=== PATIENT | male | born 2000 | race Caucasian/White ===

== ENCOUNTER 2020-07-22 21:44 | Emergency (ER) | payer SELFPAY ==
[2020-07-22] MEDS ORDERED: ACETAMINOPHEN 325 MG TABLET ONE (22:50)
[2020-07-22] MEDS ORDERED: ONDANSETRON 4 MG (ODT) TAB ONE (22:50)
--- NOTE | 2020-07-22 23:28 | EDPHYS ---
Physician Documentation [facility] Name: Vincent Navarro Age: 19 yrs Sex: Male : 2000 Arrival Date: 07/22/2020 Time: 21:47 Bed 5 Private MD: ED Physician José Manuel Borjas HPI: 07/22 21:55 This 19 yrs old Male presents to ER via Unassigned with complaints of Fall Injury, cp Concussion*. 21:55 Details of fall: The patient fell from a height, down approximately 4 stairs, and cp struck a concrete surface. 21:55 Onset: The symptoms/episode began/occurred just prior to arrival. Associated injuries: cp The patient sustained no obvious injury. Patient reports LOC of unknown duration. Denies any current pain. Slipped on wet stairs at apartment complex. Historical: - Allergies: 21:55 No Known Allergies; jd3 - Home Meds: 21:55 None [Active]; jd3 - PMHx: 21:55 None; jd3 - PSHx: 21:55 None; jd3 - Immunization history:: Adult Immunizations up to date. - Social history:: Smoking status: Patient reports the use of cigarette tobacco products, denies chronic smoking, but will smoke occasionally, Reported history of juuling and/or vaping. - Immunization history: Last tetanus immunization: unknown. ROS: 22:00 Neuro: Positive for loss of consciousness, Negative for altered mental status. cp 22:00 Constitutional: Negative for body aches, chills, fever, poor PO intake. cp 22:00 Neck: Negative for pain with movement, pain at rest, stiffness. 22:00 Cardiovascular: Negative for chest pain, palpitations. 22:00 Respiratory: Negative for cough, shortness of breath, wheezing. 22:00 Abdomen/GI: Positive for vomiting, Negative for abdominal pain. 22:00 Back: Negative for pain at rest, pain with movement. 22:00 All other systems are negative. Exam: 22:07 Head/Face: Normocephalic, atraumatic. cp 22:07 Constitutional: The patient appears in no acute distress, alert, awake, non-diaphoretic, non-toxic, well developed, well nourished. 22:07 Eyes: Periorbital structures: appear normal, Pupils: equal, round, and reactive to light and accomodation, Extraocular movements: intact throughout, Sclera: no appreciated abnormality, Lids and lashes: appear normal, bilaterally. 22:07 ENT: External ear(s): are unremarkable, Ear canal(s): are normal, clear, TM's: dullness, bilaterally, Nose: is normal, Mouth: Lips: moist, Oral mucosa: moist, Posterior pharynx: Airway: no evidence of obstruction, patent. 22:07 Neck: C-spine: C-collar placed in ED, vertebral tenderness, is not appreciated, crepitus, is not appreciated. 22:07 Chest/axilla: Inspection: normal, Palpation: is normal, no crepitus, no tenderness. 22:07 Cardiovascular: Rate: tachycardic, Rhythm: regular. 22:07 Respiratory: the patient does not display signs of respiratory distress, Respirations: cp normal, no use of accessory muscles, no retractions, labored breathing, is not present. 22:07 Abdomen/GI: Inspection: abdomen appears normal, Palpation: abdomen is soft and non-tender, in all quadrants. 22:07 Back: pain, is absent, ROM is normal. 22:07 Musculoskeletal/extremity: Exam is negative for decreased range of motion, deformity, injury. 22:07 Neuro: Orientation: to person, place \T\ time. Mentation: is normal, Motor: moves all fours, strength is normal, Sensation: is normal, Gait: is steady. Vital Signs: 21:55 BP 131 / 76; Pulse 106; Resp 17 S; Temp 98.1(O); Pulse Ox 98% on R/A; Weight 72.57 kg jd3 (R); Height 5 ft. 11 in. (180.34 cm) (R); Pain 2/10; 23:08 BP 103 / 86; Pulse 88; Resp 18; Pulse Ox 99% ; ea 21:55 Body Mass Index 22.32 (72.57 kg, 180.34 cm) jd3 Peggy Coma Score: 21:56 Eye Response: spontaneous(4). Verbal Response: oriented(5). Motor Response: obeys ea commands(6). Total: 15. 23:34 Eye Response: spontaneous(4). Verbal Response: oriented(5). Motor Response: obeys mg2 commands(6). Total: 15. Trauma Score (Adult): 21:56 Eye Response: spontaneous(1); Verbal Response: oriented(1); Motor Response: obeys ea commands(2); Systolic BP: > 89 mm Hg(4); Respiratory Rate: 10 to 29 per min(4); [place] Score: 15; Trauma Score: 12 23:34 Eye Response: spontaneous(1); Verbal Response: oriented(1); Motor Response: obeys mg2 commands(2); Systolic BP: > 89 mm Hg(4); Respiratory Rate: 10 to 29 per min(4); Peggy Score: 15; Trauma Score: 12 MDM: 21:56 Patient medically screened. cp 22:00 Differential diagnosis: closed head injury, contusion, fracture, laceration, multiple cp trauma. 23:26 Data reviewed: vital signs, nurses notes, radiologic studies, CT scan. cp 23:26 Counseling: I had a detailed discussion with the patient and/or guardian regarding: the cp historical points, exam findings, and any diagnostic results supporting the discharge/admit diagnosis, radiology results, to return to the emergency department if symptoms worsen or persist or if there are any questions or concerns that arise at home. Response to treatment: the patient's symptoms have markedly improved after treatment, and as a result, I will discharge patient. Special discussion: Based on the patient's history, exam and DX evaluation, there is no indication for emergent intervention or inpatient TX. It is understood by the patient/guardian that if the SXs persist or worsen they need to return immediately for re-evaluation. 07/22 21:54 Order name: CT Head C Spine cp Administered Medications: 22:39 Drug: Zofran (Ondansetron) 4 mg Route: PO; ea 23:31 Follow up: Response: No adverse reaction mg2 22:56 Drug: Tylenol 650 mg Route: PO; ea 23:31 Follow up: Response: No adverse reaction mg2 Disposition: 23:40 Chart complete. 07/23 00:47 Co-signature as Attending Physician, José Manuel Borjas MD. mh7 Disposition: 07/22/20 23:27 Discharged to Home. Impression: Concussion with loss of consciousness of unspecified duration. - Condition is Stable. - Discharge Instructions: Concussion, Adult, Head Injury, Adult. - Medication Reconciliation Form, Thank You Letter, Antibiotic Education, Prescription Opioid Use, Work release form form. - Follow up: Carlos Manuel Chapman MD; When: 2 - 3 days; Reason: Worsening of condition. - Problem is new. - Symptoms have improved. Signatures: Dispatcher [employer] EDMS Jesus Dickson PA PA cp Shari Christian RN RN Jarad Orosco RN RN jd3 Wilver Lord RN RN mg2 José Manuel Borjas MD MD mh7 Corrections: (The following items were deleted from the chart) 07/22 23:35 23:27 07/22/2020 23:27 Discharged to Home. Impression: Concussion with loss of mg2 consciousness of unspecified duration. Condition is Stable. Forms are Medication Reconciliation Form, Thank You Letter, Antibiotic Education, Prescription Opioid Use. Follow up: Carlos Manuel Chapman; When: 2 - 3 days; Reason: Worsening of condition. Problem is new. Symptoms have improved. cp 07/23 13:35 07/22 22:07 Cardiovascular: Rate: tachycardic, Rhythm: regular, cp cp
--- NOTE | 2020-07-22 23:28 | ER ---
Nurse's Notes [facility] Name: Vincetn Navarro Age: 19 yrs Sex: Male : 2000 Arrival Date: 07/22/2020 Time: 21:47 Bed 5 Private MD: Diagnosis: Concussion with loss of consciousness of unspecified duration Presentation: 07/22 21:54 Chief complaint: Patient states: "I fell down about 4 steps and hit my head. I passed jd3 out and when I woke up my girlfriend said I was throwing up a lot.". Coronavirus screen: At this time, the client does not indicate any symptoms associated with coronavirus-19. Ebola Screen: Patient negative for fever greater than or equal to 101.5 degrees Fahrenheit, and additional compatible Ebola Virus Disease symptoms. Initial Sepsis Screen: Does the patient meet any 2 criteria? No. Patient's initial sepsis screen is negative. Does the patient have a suspected source of infection? No. Patient's initial sepsis screen is negative. Risk Assessment: Do you want to hurt yourself or someone else? Patient reports no desire to harm self or others. Onset of symptoms was July 22, 2020. 21:54 Method Of Arrival: Ambulatory jd3 21:54 Acuity: REJI 3 jd3 21:57 Care prior to arrival: None. Mechanism of Injury: Fall down 4 steps. Trauma event ea details: Injury occurred in the [facility], Injury occurred: at home. Injury occurred: July 22, 2020. Trauma Activation: Not Applicable Physician: ED Physician; Name: ; Notified At: ; Arrived At: Physician: General Surgeon; Name: ; Notified At: ; Arrived At: Physician: Radiology; Name: ; Notified At: ; Arrived At: Physician: Respiratory; Name: ; Notified At: ; Arrived At: Physician: Lab; Name: ; Notified At: ; Arrived At: Historical: - Allergies: 21:55 No Known Allergies; jd3 - Home Meds: 21:55 None [Active]; jd3 - PMHx: 21:55 None; jd3 - PSHx: 21:55 None; jd3 - Immunization history:: Adult Immunizations up to date. - Social history:: Smoking status: Patient reports the use of cigarette tobacco products, denies chronic smoking, but will smoke occasionally, Reported history of juuling and/or vaping. - Immunization history: Last tetanus immunization: unknown. Screenin:56 Abuse screen: Denies threats or abuse. Nutritional screening: No deficits noted. ea Tuberculosis screening: No symptoms or risk factors identified. Fall Risk None identified. Primary Survey: 21:55 NO uncontrolled hemorrhage observed. A: The patient is alert. Airway: patent. ea Breathing/Chest: Respiratory pattern: regular, Respiratory effort: spontaneous, unlabored. Circulation: Skin color: pink, Skin temperature: warm. Disability Alert. Exposure/Environment: A warming method has been applied: A warm blanket has been provided to the patient. 23:04 Reassessment Breathing/Chest Respiratory pattern Regular Respiratory effort Spontaneous ea Unlabored. Assessment: 21:57 General: Appears in no apparent distress. Behavior is appropriate for age. Pain: Denies ea pain. Neuro: Level of Consciousness is awake, alert, obeys commands, Oriented to person, place, time, situation. Cardiovascular: Patient's skin is warm and dry. Respiratory: Airway is patent Respiratory effort is even, unlabored, Respiratory pattern is regular, symmetrical. Derm: Skin is pink, warm \\T\\ dry. Musculoskeletal: Circulation, motion, and sensation intact. 22:20 Reassessment: patient sent to ct scan via wheelchair. mg2 22:39 Reassessment: Patient and/or family updated on plan of care and expected duration. Pain ea level reassessed. Patient is alert, oriented x 3, equal unlabored respirations, skin warm/dry/pink. 23:04 Reassessment: Patient and/or family updated on plan of care and expected duration. Pain ea level reassessed. Patient is alert, oriented x 3, equal unlabored respirations, skin warm/dry/pink. Vital Signs: 21:55 BP 131 / 76; Pulse 106; Resp 17 S; Temp 98.1(O); Pulse Ox 98% on R/A; Weight 72.57 kg jd3 (R); Height 5 ft. 11 in. (180.34 cm) (R); Pain 2/10; 23:08 BP 103 / 86; Pulse 88; Resp 18; Pulse Ox 99% ; ea 21:55 Body Mass Index 22.32 (72.57 kg, 180.34 cm) jd3 Delta Coma Score: 21:56 Eye Response: spontaneous(4). Verbal Response: oriented(5). Motor Response: obeys ea commands(6). Total: 15. 23:34 Eye Response: spontaneous(4). Verbal Response: oriented(5). Motor Response: obeys mg2 commands(6). Total: 15. Trauma Score (Adult): 21:56 Eye Response: spontaneous(1); Verbal Response: oriented(1); Motor Response: obeys ea commands(2); Systolic BP: > 89 mm Hg(4); Respiratory Rate: 10 to 29 per min(4); Delta Score: 15; Trauma Score: 12 23:34 Eye Response: spontaneous(1); Verbal Response: oriented(1); Motor Response: obeys mg2 commands(2); Systolic BP: > 89 mm Hg(4); Respiratory Rate: 10 to 29 per min(4); Peggy Score: 15; Trauma Score: 12 ED Course: 21:47 Patient arrived in ED. bp1 21:50 Jesus Dickson PA is PHCP. cp 21:50 José Manuel Borjas MD is Attending Physician. cp 21:54 Shari Christian, [place] is Primary Nurse. ea 21:55 Triage completed. jd3 21:56 Arm band placed on. jd3 21:56 Patient has correct armband on for positive identification. Bed in low position. Call ea light in reach. Pulse ox on. NIBP on. 21:56 Patient maintains SpO2 saturation greater than 95% on room air. Thermoregulation: warm ea blanket given to patient. 22:00 Rigid cervical collar applied. mg2 22:20 No provider procedures requiring assistance completed. Patient did not have IV access mg2 during this emergency room visit. 22:42 CT Head C Spine In Process Unspecified. EDMS 23:27 Carlos Manuel Chapman MD is Referral Physician. cp Administered Medications: 22:39 Drug: Zofran (Ondansetron) 4 mg Route: PO; ea 23:31 Follow up: Response: No adverse reaction mg2 22:56 Drug: Tylenol 650 mg Route: PO; ea 23:31 Follow up: Response: No adverse reaction mg2 Intake: 23:34 PO: 0ml; Total: 0ml. mg2 Outcome: 23:27 Discharge ordered by MD. cp 23:34 Discharged to home ambulatory, with family. mg2 23:34 Condition: stable 23:34 Discharge instructions given to patient, family, Instructed on discharge instructions, follow up and referral plans. medication usage, Demonstrated understanding of instructions, follow-up care. 23:35 Patient's length of stay was not longer than 2 hours. mg2 23:35 Patient left the ED. mg2 Signatures: Dispatcher [employer] EDMS Jesus Dickson PA PA cp Antunez, Elena, RN RN ea Davies, Jonathon, RN RN jd3 Gardose, Michele, RN RN mg2 Lupe Potter
[2020-07-23 04:34] VITALS: TEMP 98.1
[2020-07-23 04:36] VITALS: BP 103/86; O2SAT 99
--- NOTE | 2020-07-23 17:51 | RAD REPORT ---
EXAM DESCRIPTION: CT - [id number] - 07/23/2020 1:14 am CLINICAL HISTORY: Fall down stairs with LOC COMPARISON: None. TECHNIQUE: CT Head and Cervical spine WO contrast on 07/22/2020 9:54 PM [employer] This exam was performed according to our departmental dose-optimization program, which includes autom ated exposure control, adjustment of the mA and/or kV according to patient size and/or use of iterati ve reconstruction technique. FINDINGS: Brain: There is no acute hemorrhage, mass effect or midline shift. Davidson-white differentiat ion is preserved. There is no hydrocephalus. There is no significant volume loss for age. The calvarium is intact. Orbits and globes are unremarkable. The paranasal sinuses are clear. Mastoid air cells are clear. Cervical Spine: There is no acute fracture. Alignment is anatomic. Disc spaces are maintained. Vertebral body heights are preserved. Soft tissues are unremarkable. IMPRESSION: No acute postraumatic findings. Electronically signed by: Leon Cardenas MD 07/22/2020 11:03 PM [employer] Due to temporary technical issues with the PACS/Fluency reporting system, reports are being signed by the in house radiologists without review as a courtesy to insure prompt reporting. The interpreting radiologist is fully responsible for the content of the report.
== END 2020-07-22 23:35 | disposition home or self-care (01) ==
LOC: ER 21:44
DX: S06.0X1A Concussion with loss of consciousness of 30 minutes or less, initial encounter (principal); W10.9XXA Fall (on) (from) unspecified stairs and steps, initial encounter; Y93.9 Activity, unspecified; Y92.9 Unspecified place or not applicable; F17.210 Nicotine dependence, cigarettes, uncomplicated
CPT/HCPCS: 70450; 72125; 99284

== ENCOUNTER 2020-11-14 15:08 | Emergency (ER) | payer SELFPAY ==
--- NOTE | 2020-11-14 16:18 | EDPHYS ---
Physician Documentation [facility] Name: Vincent Navarro Age: 20 yrs Sex: Male : 2000 Arrival Date: 11/14/2020 Time: 15:12 Bed Waiting Private MD: ED Physician Jesus Mejia HPI: 11/14 16:48 This 20 yrs old Male presents to ER via Ambulatory with complaints of Spider jr8 Bite. 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 Had small erythematic region to jr8 lower right medial leg that was hurting. Concerned that he had spider bite and wanted us to evaluate it . Severity of symptoms: At their worst the symptoms were mild. The patient has not experienced similar symptoms in the past. The patient has not recently seen a physician. Historical: - Allergies: 15:20 No Known Allergies; ll1 - PMHx: 15:20 None; ll1 - PSHx: 15:20 None; ll1 - Immunization history:: Last tetanus immunization: up to date Flu vaccine is up to date. - Social history:: Smoking status: Patient reports the use of cigarette tobacco products, smokes one-half pack cigarettes per day. ROS: 16:48 Constitutional: Negative for fever, chills, and weight loss, MS/Extremity: Negative for jr8 injury and deformity. 16:48 Skin: Positive for erythema, of the right leg. 16:48 All other systems are negative. Exam: 16:48 Constitutional: This is a well developed, well nourished patient who is awake, alert, jr8 and in no acute distress. Cardiovascular: Regular rate and rhythm with a normal S1 and S2. No gallops, murmurs, or rubs. Normal PMI, no JVD. No pulse deficits. Respiratory: Lungs have equal breath sounds bilaterally, clear to auscultation and percussion. No rales, rhonchi or wheezes noted. No increased work of breathing, no retractions or nasal flaring. MS/ Extremity: Pulses equal, no cyanosis. Neurovascular intact. Full, normal range of motion. Neuro: Awake and alert, GCS 15, oriented to person, place, time, and situation. Cranial nerves II-XII grossly intact. Motor strength 5/5 in all extremities. Sensory grossly intact. Cerebellar exam normal. Normal gait. 16:48 Skin: Patient has small 3 cm red well circumscribed region with small pustulous center. No surrounding induration or cellulitis noted . Vital Signs: 15:21 BP 150 / 83; Pulse 70; Resp 16; Temp 98.2; Pulse Ox 100% ; Weight 74.84 kg; Height 5 ll1 ft. 10 in. (177.80 cm); Pain 1/10; 15:21 Body Mass Index 23.67 (74.84 kg, 177.80 cm) ll1 MDM: 16:17 Patient medically screened. jr8 16:48 Data reviewed: vital signs, nurses notes, and as a result, I will discharge patient. jr8 Data interpreted: Pulse oximetry: on room air is 100 %. Interpretation: normal. Counseling: I had a detailed discussion with the patient and/or guardian regarding: the historical points, exam findings, and any diagnostic results supporting the discharge/admit diagnosis, the need for outpatient follow up, a family practitioner, to return to the emergency department if symptoms worsen or persist or if there are any questions or concerns that arise at home. Administered Medications: No medications were administered Disposition: 19:58 Co-signature as Attending Physician, Jesus Mejia MD I agree with the assessment and [facility] plan of care. Disposition: 11/14/20 16:18 Discharged to Home. Impression: Local infection of the skin and subcutaneous tissue, unspecified. - Condition is Stable. - Discharge Instructions: Skin Abscess, Cellulitis, Adult. - Prescriptions for Bactroban 2 % Topical Ointment - Apply to affected area 1 application by TOPICAL route every 12 hours; 30 gram. Bactrim DS 800- 160 mg Oral Tablet - take 1 tablet by ORAL route every 12 hours for 10 days; 20 tablet. - Work release form, Medication Reconciliation Form, Thank You Letter, Antibiotic Education, Prescription Opioid Use form. - Follow up: Private Physician; When: 1 week; Reason: Recheck today's complaints, Continuance of care, Re-evaluation by your physician. - Problem is new. - Symptoms have improved. Signatures: Jesus Mejia MD MD cha Roszak, Josh, PA PA jr8 Helen Gaspar RN RN ll1 Corrections: (The following items were deleted from the chart) 16:27 16:18 11/14/2020 16:18 Discharged to Home. Impression: Local infection of the skin and ll1 subcutaneous tissue, unspecified. Condition is Stable. Forms are Medication Reconciliation Form, Thank You Letter, Antibiotic Education, Prescription Opioid Use. Follow up: Private Physician; When: 1 week; Reason: Recheck today's complaints, Continuance of care, Re-evaluation by your physician. Problem is new. Symptoms have improved. jr8
--- NOTE | 2020-11-14 16:18 | ER ---
Nurse's Notes [facility] Name: Vincent Navarro Age: 20 yrs Sex: Male : 2000 Arrival Date: 11/14/2020 Time: 15:12 Bed Waiting Private MD: Diagnosis: Local infection of the skin and subcutaneous tissue, unspecified Presentation: 11/14 15:21 Chief complaint: Patient states: Small abscess to R inner leg for 1 day. No drainage or ll1 fever. Coronavirus screen: Client denies travel out of the [place] in the last 14 days. At this time, the client does not indicate any symptoms associated with coronavirus-19. Ebola Screen: Patient denies travel to an Ebola-affected area in the 21 days before illness onset. Initial Sepsis Screen: Does the patient meet any 2 criteria? No. Patient's initial sepsis screen is negative. Does the patient have a suspected source of infection? Yes: Skin breakdown/wound. Risk Assessment: Do you want to hurt yourself or someone else? Patient reports no desire to harm self or others. Onset of symptoms was November 14, 2020. 15:21 Method Of Arrival: Ambulatory ll1 15:21 Acuity: REJI 4 ll1 Triage Assessment: 16:15 General: Appears in no apparent distress. Behavior is calm, cooperative, appropriate ll1 for age. Pain: Complains of pain in RLE Quality of pain is described as aching. Derm: small abscess to right inner lower leg for 1 day. No drainage or fever. Abscess located on RLE is dime sized, has no drainage, Reports pain. Historical: - Allergies: 15:20 No Known Allergies; ll1 - PMHx: 15:20 None; ll1 - PSHx: 15:20 None; ll1 - Immunization history:: Last tetanus immunization: up to date Flu vaccine is up to date. - Social history:: Smoking status: Patient reports the use of cigarette tobacco products, smokes one-half pack cigarettes per day. Screenin:27 Abuse screen: Denies threats or abuse. Nutritional screening: No deficits noted. ll1 Tuberculosis screening: No symptoms or risk factors identified. Fall Risk Total Davila Fall Scale indicates No Risk (0-24 pts). Vital Signs: 15:21 BP 150 / 83; Pulse 70; Resp 16; Temp 98.2; Pulse Ox 100% ; Weight 74.84 kg; Height 5 ll1 ft. 10 in. (177.80 cm); Pain 1/10; 15:21 Body Mass Index 23.67 (74.84 kg, 177.80 cm) ll1 ED Course: 15:12 Patient arrived in ED. ds1 15:21 Arm band placed on. ll1 15:22 Triage completed. ll1 16:17 [facility]. jr8 16:17 Jesus Mejia MD is Attending Physician. jr8 16:27 Patient has correct armband on for positive identification. Bed in low position. Call ll1 light in reach. 16:27 No provider procedures requiring assistance completed. Patient did not have IV access ll1 during this emergency room visit. Administered Medications: No medications were administered Outcome: 16:18 Discharge ordered by . jr8 16:27 Discharged to home ambulatory. ll1 16:27 Condition: stable 16:27 Discharge instructions given to patient, Instructed on discharge instructions, follow up and referral plans. Demonstrated understanding of instructions, follow-up care, medications, Prescriptions given X 2. 16:28 Patient left the ED. ll1 Signatures: Mary Beth Goddard ds1 Delonte Franz PA PA jr8 Helen Gaspar, RN RN ll1
[2020-11-14 16:34] VITALS: BP 150/83; TEMP 98.2; O2SAT 100
== END 2020-11-14 16:28 | disposition home or self-care (01) ==
LOC: ER 15:08
DX: L08.9 Local infection of the skin and subcutaneous tissue, unspecified (principal); F17.210 Nicotine dependence, cigarettes, uncomplicated
CPT/HCPCS: 99282

== ENCOUNTER 2021-02-08 21:06 | Emergency (ER) | payer SELFPAY ==
[2021-02-08] MEDS ORDERED: LIDOCAINE 1% W/EPI 1:100,000 MDV 20 ML VIAL ONE (22:50)
--- NOTE | 2021-02-08 23:27 | EDPHYS ---
Physician Documentation [facility] Name: Vincent Navarro Age: 20 yrs Sex: Male : 2000 Arrival Date: 02/08/2021 Time: 21:07 Bed 23 Private MD: ED Physician Natan Anderson HPI: 02/08 22:35 This 20 yrs old Male presents to ER via Ambulatory with complaints of Lump cp under left arm. 22:35 The patient or guardian complains of swelling. The complaints affect the left axilla. cp Context: resulted from unknown cause. Onset: The symptoms/episode began/occurred 1 week(s) ago. Treatment prior to arrival includes: no previous treatment. Associated signs and symptoms: Pertinent positives: pain, Pertinent negatives: fever. Historical: - Allergies: 21:28 No Known Allergies; ca1 - Home Meds: 21:28 None [Active]; ca1 - PMHx: 21:28 None; ca1 - PSHx: 21:28 Bowel resection; ca1 - Immunization history:: Client reports having NOT received the Covid vaccine. Flu vaccine is not up to date. - Social history:: Smoking status: Reported history of juuling and/or vaping. Patient uses alcohol, occasionally. ROS: 22:40 MS/extremity: Positive for swelling, tenderness, of the left axilla, Negative for cp injury or acute deformity, decreased range of motion. 22:40 Eyes: Negative for injury, pain, redness, and discharge. cp 22:40 Constitutional: Negative for body aches, chills, fever. 22:40 ENT: Negative for ear pain, sore throat, difficulty swallowing, difficulty handling secretions. 22:40 Respiratory: Negative for cough, shortness of breath, wheezing. 22:40 Abdomen/GI: Negative for abdominal pain, nausea, vomiting, and diarrhea. 22:40 Skin: Negative for rash. 22:40 All other systems are negative. Exam: 22:45 Constitutional: The patient appears in no acute distress, alert, awake, comfortable, cp non-toxic, well developed, well nourished. 22:45 Head/Face: Normocephalic, atraumatic. cp 22:45 Chest/axilla: Inspection: normal. 22:45 Cardiovascular: Rate: normal. 22:45 Respiratory: the patient does not display signs of respiratory distress, Respirations: normal. 22:45 Skin: mild swelling, tender area left axilla w/o erythema and/or drainage. Vital Signs: 21:26 BP 134 / 65; Pulse 67; Resp 18 S; Temp 97.5(TE); Pulse Ox 99% on R/A; Weight 70.76 kg ca1 (R); Height 5 ft. 11 in. (180.34 cm) (R); Pain 6/10; 22:43 BP 117 / 63; Pulse 78; Resp 17; Pulse Ox 98% on R/A; Pain 5/10; ap3 23:26 BP 115 / 68; Pulse 67; Pulse Ox 99% on R/A; ap3 21:26 Body Mass Index 21.76 (70.76 kg, 180.34 cm) ca1 MDM: 22:19 Patient medically screened. cp 23:25 Data reviewed: vital signs, nurses notes, and as a result, I will discharge patient. cp 23:25 Counseling: I had a detailed discussion with the patient and/or guardian regarding: the cp historical points, exam findings, and any diagnostic results supporting the discharge/admit diagnosis, to return to the emergency department if symptoms worsen or persist or if there are any questions or concerns that arise at home. ED course: VSS. Area aspirated with 18 gauge needle and 10 cc syringe with small amount bloody drainage returned. 02/08 22:32 Order name: I\T\D Setup; Complete Time: 22:38 cp Administered Medications: 23:14 Drug: Lidocaine-Epinephrine -1%: (1:100,000) 10 ml {Note: ADMINISTERED BY SUGAR PAGE.} ap3 Volume: 20 ml; Route: Infiltration; 23:14 Drug: Marcaine (bupivacaine) (0.5 %) 10 ml {Note: ADMINISTERED BY SUGAR PAGE.} Volume: ap3 10 ml; Route: Infiltration; Disposition: 02/08/21 23:27 Discharged to Home. Impression: Localized swelling, mass and lump of skin and subcutaneous tissue - left axilla. - Condition is Stable. - Prescriptions for Keflex 500 mg Oral Capsule - take 1 capsule by ORAL route every 6 hours for 10 days; 40 capsule. - Medication Reconciliation Form, Thank You Letter, Antibiotic Education, Prescription Opioid Use form. - Follow up: Private Physician; When: 2 - 3 days; Reason: Worsening of condition. - Problem is new. - Symptoms are unchanged. Addendum: 02/13/2021 07:24 Co-signature as Attending Physician, Natan Anderson MD. r n Signatures: Natan Anderson MD MD rn Sugar Dickson PA PA cp Chetna Gomez RN RN ap3 Ally Gomez RN RN ca1 Corrections: (The following items were deleted from the chart) 02/08 21:28 21:28 PSHx: None; ca1 ca1 23:34 23:27 02/08/2021 23:27 Discharged to Home. Impression: Localized swelling, mass and ap3 lump of skin and subcutaneous tissue - left axilla. Condition is Stable. Forms are Medication Reconciliation Form, Thank You Letter, Antibiotic Education, Prescription Opioid Use. Follow up: Private Physician; When: 2 - 3 days; Reason: Worsening of condition. Problem is new. Symptoms are unchanged. cp
--- NOTE | 2021-02-08 23:27 | ER ---
Nurse's Notes [facility] Name: Vincent Navarro Age: 20 yrs Sex: Male : 2000 Arrival Date: 02/08/2021 Time: 21:07 Bed 23 Private MD: Diagnosis: Localized swelling, mass and lump of skin and subcutaneous tissue-left axilla Presentation: 02/08 21:26 Chief complaint: Patient states: Lump on L armpit x 1 week. Noticed it growing since ca1 last weak and now very tender. Coronavirus screen: Client denies travel out of the [place] in the last 14 days. At this time, the client does not indicate any symptoms associated with coronavirus-19. Ebola Screen: Patient negative for fever greater than or equal to 101.5 degrees Fahrenheit, and additional compatible Ebola Virus Disease symptoms Patient denies exposure to infectious person. Patient denies travel to an Ebola-affected area in the 21 days before illness onset. No symptoms or risks identified at this time. Initial Sepsis Screen: Does the patient meet any 2 criteria? No. Patient's initial sepsis screen is negative. Does the patient have a suspected source of infection? No. Patient's initial sepsis screen is negative. Risk Assessment: Do you want to hurt yourself or someone else? Patient reports no desire to harm self or others. Onset of symptoms was February 08, 2021. 21:26 Method Of Arrival: Ambulatory ca1 21:26 Acuity: REJI 4 ca1 Historical: - Allergies: 21:28 No Known Allergies; ca1 - Home Meds: 21:28 None [Active]; ca1 - PMHx: 21:28 None; ca1 - PSHx: 21:28 Bowel resection; ca1 - Immunization history:: Client reports having NOT received the Covid vaccine. Flu vaccine is not up to date. - Social history:: Smoking status: Reported history of juuling and/or vaping. Patient uses alcohol, occasionally. Screenin:10 Abuse screen: Denies threats or abuse. Nutritional screening: No deficits noted. ap3 Tuberculosis screening: No symptoms or risk factors identified. Fall Risk None identified. Assessment: 22:13 General: Appears in no apparent distress. comfortable, Behavior is calm, cooperative, ap3 appropriate for age. Pain: Complains of pain in left axilla Pain does not radiate. Pain currently is 6 out of 10 on a pain scale. at worst was 8 out of 10 on a pain scale. Quality of pain is described as crampy, tender, Pain began "about a week ago" Alleviated by medications, Aggravated by touch. Neuro: Level of Consciousness is awake, alert, obeys commands, Oriented to person, place, time, situation. Cardiovascular: Capillary refill < 3 seconds. Respiratory: Airway is patent Respiratory effort is even, unlabored, Respiratory pattern is regular, symmetrical. GI: No signs and/or symptoms were reported involving the gastrointestinal system. : No signs and/or symptoms were reported regarding the genitourinary system. EENT: No signs and/or symptoms were reported regarding the EENT system. Derm: Reports inflammation on left axillary region. 23:26 Reassessment: Patient and/or family updated on plan of care and expected duration. Pain ap3 level reassessed. Patient is alert, oriented x 3, equal unlabored respirations, skin warm/dry/pink. Vital Signs: 21:26 BP 134 / 65; Pulse 67; Resp 18 S; Temp 97.5(TE); Pulse Ox 99% on R/A; Weight 70.76 kg ca1 (R); Height 5 ft. 11 in. (180.34 cm) (R); Pain 6/10; 22:43 BP 117 / 63; Pulse 78; Resp 17; Pulse Ox 98% on R/A; Pain 5/10; ap3 23:26 BP 115 / 68; Pulse 67; Pulse Ox 99% on R/A; ap3 21:26 Body Mass Index 21.76 (70.76 kg, 180.34 cm) ca1 ED Course: 21:07 Patient arrived in ED. es 21:27 Triage completed. ca1 21:28 Arm band placed on right wrist. ca1 22:06 Sugar Dickson PA is PHCP. cp 22:06 Natan Anderson MD is Attending Physician. cp 22:10 Chetna Gomez, [place] is Primary Nurse. ap3 22:10 Patient has correct armband on for positive identification. Pulse ox on. NIBP on. Door ap3 closed. Noise minimized. 22:45 Pt visited by significant other. ap3 23:13 Assist provider with I \\T\\ D: of an abscess on left axilla. Patient did not have IV ap3 access during this emergency room visit. Administered Medications: 23:14 Drug: Lidocaine-Epinephrine -1%: (1:100,000) 10 ml {Note: ADMINISTERED BY SUGAR DICKSON.} ap3 Volume: 20 ml; Route: Infiltration; 23:14 Drug: Marcaine (bupivacaine) (0.5 %) 10 ml {Note: ADMINISTERED BY SUGAR DICKSON.} Volume: ap3 10 ml; Route: Infiltration; Outcome: 23:27 Discharge ordered by . cp 23:33 Discharged to home ambulatory, with significant other. ap3 23:33 Condition: good 23:33 Discharge instructions given to patient, Instructed on discharge instructions, follow up and referral plans. medication usage, Demonstrated understanding of instructions, follow-up care, medications, Prescriptions given X 1. 23:34 Patient left the ED. ap3 Signatures: Bella Blandon Corey, PA PA cp Prokisch, Amanda, RN RN ap3 Ally Gomez RN RN ca1 Corrections: (The following items were deleted from the chart) 21:28 21:28 PSHx: None; ca1 ca1
[2021-02-08 23:56] VITALS: TEMP 97.5
[2021-02-08 23:59] VITALS: BP 115/68; O2SAT 99
== END 2021-02-08 23:34 | disposition home or self-care (01) ==
LOC: ER 21:06
DX: R22.2 Localized swelling, mass and lump, trunk (principal)
CPT/HCPCS: 99284

== ENCOUNTER 2021-03-19 17:37 | Emergency (ER) | payer SELFPAY ==
[2021-03-19] MEDS ORDERED: HYDROCODONE/APAP 5/325 MG TAB ONE (18:48)
--- NOTE | 2021-03-19 19:35 | RAD REPORT ---
EXAM DESCRIPTION: RAD - Ankle Left 3 View -03/19/2021 6:57 pm CLINICAL HISTORY: Left ankle pain status post injury FINDINGS: No fracture or dislocation is seen.
--- NOTE | 2021-03-19 19:36 | RAD REPORT ---
EXAM DESCRIPTION: RAD - Foot Left 3 View - 03/19/2021 6:57 pm CLINICAL HISTORY: Left Foot pain status post injury FINDINGS: No fracture or dislocation is seen.
--- NOTE | 2021-03-19 19:42 | ER ---
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 Pain and swelling on ca1 L foot. Coronavirus screen: Client denies travel out of the [place] in the last 14 days. At this time, the client does not indicate any symptoms associated with coronavirus-19. Ebola Screen: Patient negative for fever greater than or equal to 101.5 degrees Fahrenheit, and additional compatible Ebola Virus Disease symptoms Patient denies exposure to infectious person. Patient denies travel to an Ebola-affected area in the 21 days before illness onset. No symptoms or risks identified at this time. Initial Sepsis Screen: Does the patient meet any 2 criteria? No. Patient's initial sepsis screen is negative. Does the patient have a suspected source of infection? No. Patient's initial sepsis screen is negative. Risk Assessment: Do you want to hurt yourself or someone else? Patient reports no desire to harm self or others. Onset of symptoms was March 19, 2021. 17:50 Method Of Arrival: Wheelchair ca1 17:50 Acuity: REJI 4 ca1 Triage Assessment: 18:04 Injury Description: swelling. zb Historical: - Allergies: 17:52 No Known Allergies; ca1 - Home Meds: 17:52 None [Active]; ca1 - PMHx: 17:52 None; ca1 - PSHx: 17:52 None; ca1 - Immunization history:: Client reports having NOT received the Covid vaccine. Flu vaccine is not up to date. - Social history:: Smoking status: Patient reports the use of cigarette tobacco products, smokes one pack cigarettes per day. Screenin:02 Abuse screen: Denies threats or abuse. Denies injuries from another. Nutritional zb screening: No deficits noted. Tuberculosis screening: No symptoms or risk factors identified. Fall Risk None identified. Assessment: 18:02 Reassessment: ecp at bedside. General: Appears uncomfortable, Behavior is calm, zb cooperative. Pain: Complains of pain in left foot Pain currently is 9 out of 10 on a pain scale. Quality of pain is described as aching, Pain began suddenly, 1 hour ago. Neuro: Level of Consciousness is awake, alert, obeys commands, Oriented to person, place, time. Cardiovascular: Patient's skin is warm and dry. Respiratory: Airway is patent Respiratory effort is even, unlabored, Respiratory pattern is regular, symmetrical. Derm: Skin is intact, is healthy with good turgor. Musculoskeletal: Range of motion: limited in left ankle. 18:51 Reassessment: Patient appears in no apparent distress at this time. Patient and/or zb family updated on plan of care and expected duration. Pain level reassessed. Patient is alert, oriented x 3, equal unlabored respirations, skin warm/dry/pink. x-ray just completed. Vital Signs: 17:50 BP 129 / 90; Pulse 109; Resp 18 S; Temp 98.1(TE); Pulse Ox 99% on R/A; Weight 72.57 kg ca1 (R); Height 5 ft. 11 in. (180.34 cm) (R); Pain 9/10; 19:47 BP 115 / 88; Pulse 99; Resp 18; Pulse Ox 100% on R/A; zb 17:50 Body Mass Index 22.32 (72.57 kg, 180.34 cm) ca1 ED Course: 17:42 Patient arrived in ED. bp1 17:51 Triage completed. ca1 17:52 Arm band placed on right wrist. ca1 18:01 Jt Umanzor NP is PHCP. pm1 18:01 Tan Horton MD is Attending Physician. pm1 18:02 Vida Chang, [place] is Primary Nurse. zb 18:02 Patient has correct armband on for positive identification. Bed in low position. Call zb light in reach. Pulse ox on. NIBP on. Door closed. Noise minimized. 18:57 Foot Left 3 View XRAY In Process Unspecified. EDMS 18:57 Ankle Left 3 View XRAY In Process Unspecified. EDMS 19:47 No provider procedures requiring assistance completed. Patient did not have IV access zb during this emergency room visit. Administered Medications: 18:50 Drug: HYDROcodone-acetaminophen 5 mg-325 mg 1 tabs {Note: RASS +0.} Route: PO; zb 19:50 Follow up: Response: No adverse reaction; Marked relief of symptoms; Pain is decreased; zb RASS: Alert and Calm (0) Outcome: 19:42 Discharge ordered by . pm1 19:47 Discharged to home ambulatory. zb 19:47 Condition: stable 19:47 Discharge instructions given to patient, Instructed on discharge instructions, follow up and referral plans. Demonstrated understanding of instructions, follow-up care, medications, Prescriptions given X 1. 19:52 Patient left the ED. zb Signatures: Dispatcher [employer] EDMS Jt Umanzor NP METAL RIVET MACHINE OPERATOR pm1 Ally Gomez, RN RN ca1 Lupe Potter Zipporah, RN RN zb Corrections: (The following items were deleted from the chart) 18:51 18:02 Pain: Complains of pain in left foot Pain currently is 5 out of 10 on a pain zb scale. Quality of pain is described as aching, Pain began suddenly, 1 hour ago. zb
--- NOTE | 2021-03-19 19:42 | EDPHYS ---
Physician Documentation [facility] Name: Vincent Navarro Age: 20 yrs Sex: Male : 2000 Arrival Date: 03/19/2021 Time: 17:42 Bed 26 Private MD: ED Physician Tan Horton HPI: 03/19 18:50 This 20 yrs old Male presents to ER via Wheelchair with complaints of Foot pm1 Injury. 18:50 The patient presents with pain. The complaints affect the left foot. Context: The pm1 problem was sustained at work, resulted from kicking a piece of wood, the patient can fully bear weight, the patient is able to ambulate, Problem is a result from a previous injury: No. Onset: The symptoms/episode began/occurred today. Modifying factors: The symptoms are alleviated by elevating leg, the symptoms are aggravated by weight bearing. Associated signs and symptoms: The patient has no apparent associated signs or symptoms, Pertinent negatives numbness, swelling, tingling. Treatment prior to arrival includes: no previous treatment. Severity of symptoms: in the emergency department the symptoms are unchanged. The patient has not experienced similar symptoms in the past. The patient has not recently seen a physician. Historical: - Allergies: 17:52 No Known Allergies; ca1 - Home Meds: 17:52 None [Active]; ca1 - PMHx: 17:52 None; ca1 - PSHx: 17:52 None; ca1 - Immunization history:: Client reports having NOT received the Covid vaccine. Flu vaccine is not up to date. - Social history:: Smoking status: Patient reports the use of cigarette tobacco products, smokes one pack cigarettes per day. ROS: 18:50 Constitutional: Negative for fever, chills, and weight loss, Cardiovascular: Negative pm1 for chest pain, palpitations, and edema, Respiratory: Negative for shortness of breath, cough, wheezing, and pleuritic chest pain, Abdomen/GI: Negative for abdominal pain, nausea, vomiting, diarrhea, and constipation. 18:50 Skin: Negative for injury, rash, and discoloration, Neuro: Negative for headache, weakness, numbness, tingling, and seizure. 18:50 MS/extremity: Positive for pain, of the left foot, Negative for decreased range of motion, deformity. 18:50 All other systems are negative. Exam: 18:50 Constitutional: This is a well developed, well nourished patient who is awake, alert, pm1 and in no acute distress. Head/Face: Normocephalic, atraumatic. 18:50 Back: No spinal tenderness. No costovertebral tenderness. Full range of motion. Skin: Warm, dry with normal turgor. Normal color with no rashes, no lesions, and no evidence of cellulitis. 18:50 Cardiovascular: Exam negative for acute changes, Rate: normal, Rhythm: Pulses: no pulse deficits are appreciated. 18:50 Respiratory: Exam negative for acute changes, respiratory distress, shortness of breath. 18:50 Musculoskeletal/extremity: Exam is negative for acute changes, Extremities: grossly normal except: noted in the arch of left foot and dorsum of left foot: tenderness, There is no evidence of decreased ROM, deformity, swelling, ROM: no acute changes, Circulation is intact in all extremities. 18:50 Neuro: Exam negative for acute changes, Orientation: is normal, Mentation: is normal, Motor: is normal, moves all fours, strength is 5/5 in all extremities. Vital Signs: 17:50 BP 129 / 90; Pulse 109; Resp 18 S; Temp 98.1(TE); Pulse Ox 99% on R/A; Weight 72.57 kg ca1 (R); Height 5 ft. 11 in. (180.34 cm) (R); Pain 9/10; 19:47 BP 115 / 88; Pulse 99; Resp 18; Pulse Ox 100% on R/A; zb 17:50 Body Mass Index 22.32 (72.57 kg, 180.34 cm) ca1 MDM: 18:01 Patient medically screened. pm1 19:41 Data reviewed: vital signs. Data interpreted: Pulse oximetry: on room air is 99 %. pm1 Interpretation: normal. Counseling: I had a detailed discussion with the patient and/or guardian regarding: the historical points, exam findings, and any diagnostic results supporting the discharge/admit diagnosis, radiology results, the need for outpatient follow up, to return to the emergency department if symptoms worsen or persist or if there are any questions or concerns that arise at home. 03/19 18:05 Order name: Foot Left 3 View XRAY; Complete Time: 19:41 pm1 03/19 18:05 Order name: Ankle Left 3 View XRAY; Complete Time: 19:41 pm1 Administered Medications: 18:50 Drug: HYDROcodone-acetaminophen 5 mg-325 mg 1 tabs {Note: RASS +0.} Route: PO; zb 19:50 Follow up: Response: No adverse reaction; Marked relief of symptoms; Pain is decreased; zb RASS: Alert and Calm (0) Disposition Summary: 03/19/21 19:42 Discharge Ordered Location: Home pm1 Problem: new pm1 Symptoms: have improved pm1 Condition: Stable pm1 Diagnosis - Contusion of foot pm1 Followup: pm1 - With: Emergency Department - When: As needed - Reason: Worsening of condition Followup: pm1 - With: Private Physician - When: 2 - 3 days - Reason: Recheck today's complaints, Continuance of care, Re-evaluation by your physician Discharge Instructions: - Discharge Summary Sheet pm1 - Foot Contusion pm1 Forms: - Medication Reconciliation Form pm1 - Thank You Letter pm1 - Antibiotic Education pm1 - Prescription Opioid Use pm1 - Work release form zb Prescriptions: - Diclofenac Sodium 75 mg Oral tablet,delayed release (DR/EC) - take 1 tablet by ORAL route 2 times per day As needed; 30 tablet; Refills: 0, pm1 Product Selection Permitted Signatures: Dispatcher [employer] EDMS Jt Umanzor, KEVIN ACCOUNTS SPECIALIST pm1 Ally Gomez RN RN ca1 Brown, Zipporah, RN RN zb
[2021-03-19 20:06] VITALS: TEMP 98.1
[2021-03-19 20:08] VITALS: BP 115/88; O2SAT 100
== END 2021-03-19 19:52 | disposition home or self-care (01) ==
LOC: ER 17:37
DX: S90.32XA Contusion of left foot, initial encounter (principal); W22.8XXA Striking against or struck by other objects, initial encounter; Y93.01 Activity, walking, marching and hiking; F17.210 Nicotine dependence, cigarettes, uncomplicated
CPT/HCPCS: 99284

== ENCOUNTER 2021-10-18 18:11 | Emergency (ER) | payer SELFPAY ==
[2021-10-18 19:30] LABS: Absolute Lymphocytes (CBC) 2.3 K/uL (0.7-4.9); Hematocrit 43.3 % (39.6-49.0); Lymphocytes % 33.8 % (15.3-44.8); RBC Red Blood Cell Count 5.08 M/uL (4.33-5.43)
[2021-10-18 20:16] LABS: AST/SGOT 12 U/L (15-37); Albumin 4.6 g/dL (3.4-5.0); Alkaline Phosphatase 66 U/L (45-117); BUN Blood Urea Nitrogen 11 mg/dL (7-18); Bicarbonate 29 mmol/L (21-32); Glucose Level 86 mg/dL (74-106); Potassium 3.3 mmol/L (3.5-5.1); Protein, Total 7.3 g/dL (6.4-8.2); Sodium Level 139 mmol/L (136-145)
--- NOTE | 2021-10-18 20:42 | RAD REPORT ---
EXAM DESCRIPTION: CTAbdomen Pelvis W Contrast - 10/18/2021 8:27 pm CLINICAL HISTORY: ABD PAIN COMPARISON: No comparisonsNo comparisonsNo comparisons TECHNIQUE: CT of the abdomen and pelvis was performed. All CT scans are performed using dose optimization technique as appropriate and may include automated exposure control or mA/KV adjustment according to patient size. FINDINGS: Lower chest: No acute abnormality. Mild circumferential thickened distal esophagus could r eflect esophagitis. Liver: No acute abnormality or suspicious lesions. Biliary: No biliary ductal dilatation. Stomach: No significant focal abnormality. Duodenum: No significant focal abnormality. Pancreas: No significant abnormality. Spleen: No significant abnormality. Adrenal: No suspicious lesions. Kidney/ureter: No hydronephrosis. No renal calculi. Retroperitoneum: No retroperitoneal adenopathy. Vascular: No aneurysm. Bowel: No significant focal abnormality. Normal appendix. Peritoneum: No ascites or free air. Bladder: Grossly unremarkable. Reproductive: No adnexal masses. Bones: No acute fracture. Other: n/a IMPRESSION: No acute intra-abdominal or pelvic finding. Normal appendix.
--- NOTE | 2021-10-18 21:34 | EDPHYS ---
Physician Documentation [facility] Name: Vincent Navarro Age: 20 yrs Sex: Male : 2000 Arrival Date: 10/18/2021 Time: 18:13 Bed 18 Private MD: ED Physician Jesus Mejia HPI: 10/18 18:25 This 20 yrs old Male presents to ER via Ambulatory with complaints of Rectal Bleeding, jmm Abdominal Pain. 18:25 The patient presents to the emergency department with bleeding from the rectum/anus. jmm Onset: The symptoms/episode began/occurred gradually, 1 week(s) ago. Modifying factors: The symptoms are alleviated by nothing, The symptoms are aggravated by bowel movement. Associate signs and symptoms: Pertinent positives: abdominal pain in the right upper quadrant, left upper quadrant, right lower quadrant, left lower quadrant and abdomen diffusely. It is unknown whether or not the patient has had similar symptoms in the past. This is a 20 year old male with no chronic medical conditions that presents to the ED with complaints of multiple months of abdominal pain with one week of bright red rectal bleeding worsening yesterday. Denies fever, vomiting, diarrhea. . Historical: - Allergies: 18:20 No Known Allergies; vg1 - Home Meds: 18:20 None [Active]; vg1 - PMHx: 18:20 None; vg1 - PSHx: 18:21 Hernia repair; vg1 - Immunization history:: Client reports having NOT received the Covid vaccine. - Social history:: Smoking status: Reported history of juuling and/or vaping. Patient uses alcohol, occasionally. ROS: 18:25 Constitutional: Negative for fever, chills, and weight loss, Cardiovascular: Negative jmm for chest pain, palpitations, and edema, Respiratory: Negative for shortness of breath, cough, wheezing, and pleuritic chest pain. 18:25 Abdomen/GI: Positive for abdominal pain, rectal bleeding. 18:25 All other systems are negative. Exam: 18:25 Constitutional: This is a well developed, well nourished patient who is awake, alert, jmm and in no acute distress. Head/Face: atraumatic. Eyes: EOMI, no conjunctival erythema appreciated ENT: Moist Mucus Membranes Neck: Trachea midline, Supple Chest/axilla: Normal chest wall appearance and motion. Cardiovascular: Regular rate and rhythm. No edema appreciated Respiratory: Normal respirations, no respiratory distress appreciated Abdomen/GI: Non distended, soft Back: Normal ROM Skin: General appearance color normal MS/ Extremity: Moves all extremities, no obvious deformities appreciated, no edema noted to the lower extremities Neuro: Awake and alert Psych: Behavior is normal, Mood is normal, Patient is cooperative and pleasant Vital Signs: 18:19 BP 127 / 75; Pulse 70; Resp 16; Temp 99.6; Pulse Ox 97% ; Weight 70.31 kg; Height 5 ft. jl7 11 in. (180.34 cm); Pain 6/10; 19:30 BP 130 / 75; Pulse 63; Resp 16; Pulse Ox 99% on R/A; Pain 4/10; vc1 18:19 Body Mass Index 21.62 (70.31 kg, 180.34 cm) jl7 MDM: 18:25 Patient medically screened. taj 21:26 Data reviewed: vital signs, nurses notes. Counseling: I had a detailed discussion with [facility] the patient and/or guardian regarding: the historical points, exam findings, and any diagnostic results supporting the discharge/admit diagnosis. 21:27 Counseling: I had a detailed discussion with the patient and/or guardian regarding: lab [facility] results, radiology results, the need for outpatient follow up. Refusal of service: The patient/guardian displays adequate decision making capability and despite a detailed discussion of alternatives, benefits, risks, and consequences refuses: rectal exam. ED course: Labs, ct negative. patient advised to follow up with pcp and otherwise given strict return precautions. patient understood and agrees with the plan of care. . 10/18 18:26 Order name: Basic Metabolic Panel [facility] 10/18 18:26 Order name: CBC with Diff; Complete Time: 19:51 [facility] 10/18 18:26 Order name: Hepatic Function [facility] 10/18 18:26 Order name: Lipase [facility] 10/18 18:26 Order name: Basic Metabolic Panel [facility] 10/18 19:04 Order name: CT Abd/Pelvis - IV Contrast Only; Complete Time: 20:48 [facility] 10/18 18:26 Order name: IV Saline Lock; Complete Time: 19:07 [facility] 10/18 18:26 Order name: Labs collected and sent; Complete Time: 19:07 [facility] 10/18 19:59 Order name: Gown patient; Complete Time: 20:21 [facility] Administered Medications: No medications were administered Disposition: 10/19 08:28 Co-signature as Attending Physician, Jesus Mejia MD I agree with the assessment and taj plan of care. Disposition Summary: 10/18/21 21:33 Discharge Ordered Location: Home [facility] Condition: Stable jm Diagnosis - Lower Gastrointestinal Bleeding [facility] Followup: jmm - With: Private Physician - When: 2 - 3 days - Reason: Recheck today's complaints, Continuance of care, Re-evaluation by your physician [facility]up: [facility] - With: Dunia Mai MD - When: 2 - 3 days - Reason: Recheck today's complaints, Continuance of care, Re-evaluation by your physician Discharge Instructions: - Discharge Summary Sheet [facility] - Hemorrhoids [facility] Forms: - Medication Reconciliation Form [facility] - Thank You Letter [facility] - Antibiotic Education [facility] - Prescription Opioid Use [facility] Prescriptions: - Anusol-HC 25 mg Rectal Suppository - insert 1 suppository by RECTAL route every 12 hours As needed; 20 suppository; [facility] Refills: 0, Product Selection Permitted Signatures: Dispatcher [employer] Jesus Argueta MD MD cha Mickail, Joel, PA PA Rima Kennedy, RN RN vg1 Corrections: (The following items were deleted from the chart) 10/18 18:22 18:20 PSHx: Repair of inguinal hernia; vg1 vg1
--- NOTE | 2021-10-18 21:34 | ER ---
Nurse's Notes [facility] Name: Vincent Navarro Age: 20 yrs Sex: Male : 2000 Arrival Date: 10/18/2021 Time: 18:13 Bed 18 Private MD: Diagnosis: Lower Gastrointestinal Bleeding Presentation: 10/18 18:19 Chief complaint: Patient states: 'i have a history of stomach issures', states rectal vg1 bleeding and ABD pain x1 month, but this past week the pain has become worse and the blood is more often; states bright red in color. Coronavirus screen: Vaccine status: Patient reports being unvaccinated. Client denies travel out of the [place] in the last 14 days. Ebola Screen: Patient negative for fever greater than or equal to 101.5 degrees Fahrenheit, and additional compatible Ebola Virus Disease symptoms. Initial Sepsis Screen: Does the patient meet any 2 criteria? No. Patient's initial sepsis screen is negative. Does the patient have a suspected source of infection? No. Patient's initial sepsis screen is negative. Risk Assessment: Do you want to hurt yourself or someone else? Patient reports no desire to harm self or others. Onset of symptoms was October 11, 2021. 18:19 Method Of Arrival: Ambulatory vg1 18:19 Acuity: REJI 3 vg1 Triage Assessment: 18:21 General: Appears in no apparent distress. uncomfortable, Behavior is calm, cooperative. vg1 Pain: Complains of pain in epigastric area Pain currently is 6 out of 10 on a pain scale. GI: Abdomen is flat, non-distended, Reports nausea, Patient currently denies diarrhea, vomiting. Historical: - Allergies: 18:20 No Known Allergies; vg1 - Home Meds: 18:20 None [Active]; vg1 - PMHx: 18:20 None; vg1 - PSHx: 18:21 Hernia repair; vg1 - Immunization history:: Client reports having NOT received the Covid vaccine. - Social history:: Smoking status: Reported history of juuling and/or vaping. Patient uses alcohol, occasionally. Screenin:29 Abuse screen: Denies threats or abuse. Nutritional screening: No deficits noted. vc1 Tuberculosis screening: No symptoms or risk factors identified. Fall Risk None identified. Assessment: 19:41 General: Appears in no apparent distress. comfortable, Behavior is calm, cooperative, vc1 appropriate for age. Pain: Complains of pain in right upper quadrant and left upper quadrant and epigastric area Pain does not radiate. Pain currently is 4 out of 10 on a pain scale. at worst was 8 out of 10 on a pain scale. Neuro: No deficits noted. Cardiovascular: No deficits noted. GI: Bowel sounds present X 4 quads. hyperactive in left lower quadrant Abd is soft and non tender X 4 quads. Reports upper abdominal pain, rectal bleeding, bloody stool, epigastric pain. 21:36 Reassessment: Patient appears in no apparent distress at this time. Patient and/or vc1 family updated on plan of care and expected duration. Pain level reassessed. Patient is alert, oriented x 3, equal unlabored respirations, skin warm/dry/pink. Vital Signs: 18:19 BP 127 / 75; Pulse 70; Resp 16; Temp 99.6; Pulse Ox 97% ; Weight 70.31 kg; Height 5 ft. jl7 11 in. (180.34 cm); Pain 6/10; 19:30 BP 130 / 75; Pulse 63; Resp 16; Pulse Ox 99% on R/A; Pain 4/10; vc1 18:19 Body Mass Index 21.62 (70.31 kg, 180.34 cm) jl7 ED Course: 18:13 Patient arrived in ED. as 18:20 Triage completed. vg1 18:21 Arm band placed on. vg1 18:24 Kishore Plascencia, RN is Primary Nurse. bp 18:25 Jorge Dai PA is PHCP. [facility] 18:25 Jesus Mejia MD is Attending Physician. [facility] 19:03 Primary Nurse role handed off by Kishore Plascencia, RN mw2 19:05 Inserted saline lock: 20 gauge in right antecubital area, using aseptic technique. vc1 Blood collected. 19:06 Bambi Patel, [place] is Primary Nurse. vc1 19:07 Basic Metabolic Panel Sent. vc1 19:07 CBC with Diff Sent. vc1 19:07 Hepatic Function Sent. vc1 19:07 Lipase Sent. vc1 19:07 Basic Metabolic Panel Sent. vc1 19:29 Patient has correct armband on for positive identification. vc1 20:28 CT Abd/Pelvis - IV Contrast Only In Process Unspecified. EDMS 21:35 Dunia Mai MD is Referral Physician. [facility] 21:46 IV discontinued, intact, bleeding controlled, No redness/swelling at site. Pressure vc1 dressing applied. 21:46 Served as a ironing pleater during rectal exam. vc1 Administered Medications: No medications were administered Outcome: 21:[address] . [facility] 21:46 Discharged to home ambulatory, with family. vc1 21:46 Condition: good 21:46 Discharge instructions given to patient, Instructed on discharge instructions, follow up and referral plans. Demonstrated understanding of instructions, follow-up care, Prescriptions given X 1. 21:47 Patient left the ED. vc1 Signatures: Dispatcher [employer] EDMS Jorge Dai PA PA jmm Martinez, Amelia as Leal, Jahala, RN RN jl7 Kishore Plascencia RN RN bp Israel Reina mw2 Rima Mariee RN RN vg1 Bambi Patel RN RN vc1 Corrections: (The following items were deleted from the chart) 18:22 18:20 PSHx: Repair of inguinal hernia; vg1 vg1 18:24 18:19 BP 127 / 5; Pulse 70bpm; Resp 16bpm; Pulse Ox 97%; Temp 99.6F; 70.31 kg; Height 5 jl7 ft. 11 in.; BMI: 21.6; Pain 6/10; vg1 21:47 21:46 No provider procedures requiring assistance completed. vc1 vc1
[2021-10-18 22:21] VITALS: TEMP 99.6
[2021-10-18 22:23] VITALS: BP 130/75; O2SAT 99
[2021-10-19 01:48] LABS: Bilirubin Direct 0.1 mg/dL (0-0.2); Bilirubin Total 0.5 mg/dL (0.2-1.0); Lipase 53 U/L (73-393)
[2021-10-19 02:07] LABS: ALT/SGPT 17 U/L (12-78)
== END 2021-10-18 21:47 | disposition home or self-care (01) ==
LOC: ER 18:11
DX: K92.2 Gastrointestinal hemorrhage, unspecified (principal)
CPT/HCPCS: 36415; 74177; 80048; 80076; 83690; 85025; 99284; Q9967